=== PATIENT | male | born 1960 | race Asian ===

== ENCOUNTER 2022-07-01 04:47 | Emergency (ER) | payer MEDICARE, MEDICAID ==
[~2022-07-01] VITALS: Ht 167.6 cm; Wt 100.0 kg
[~2022-07-01 04:47] MED LIST: AMLO10TA4 PO
[2022-07-01 06:00] VITALS: BP 160/97
== END 2022-07-01 06:04 | disposition home or self-care (01) ==
LOC: ER 04:47
DX: S22.32XA Fracture of one rib, left side, initial encounter for closed fracture (principal); I10 Essential (primary) hypertension; Z88.0 Allergy status to penicillin; V89.2XXA Person injured in unspecified motor-vehicle accident, traffic, initial encounter; Y93.89 Activity, other specified; Y92.89 Other specified places as the place of occurrence of the external cause; Y99.8 Other external cause status
CPT/HCPCS: 71045; 99283

== ENCOUNTER 2022-12-08 23:25 | Emergency (ER) | payer MEDICARE, MEDICAID ==
[~2022-12-08] VITALS: Ht 167.6 cm; Wt 104.5 kg
[2022-12-08 23:30] VITALS: BP 176/114
== END 2022-12-08 23:41 ==
LOC: ER 23:26
DX: I10 Essential (primary) hypertension (principal); Z87.442 Personal history of urinary calculi; Z88.0 Allergy status to penicillin; Z79.899 Other long term (current) drug therapy
CPT/HCPCS: 99283